=== PATIENT | male | born 1965 | race American Indian/Alaskan Native ===

== ENCOUNTER 2020-08-28 15:27 | Emergency (ER) | payer SELFPAY ==
[2020-08-28 15:34] VITALS: BP 102/67
[2020-08-28] MEDS ORDERED: ASPIRIN 325 MG TAB PO ONE (15:34)
--- NOTE | 2020-08-28 15:45 | Emergency Department Report ---
Blank Doc - Documentation Documentation: 55-year-old male that presents with chest pain, shortness of breath and stating hypotension. 1- This initial assessment/diagnostic orders/clinical plan/ treatment(s) is/are subject to change based on pt's health status, clinical progression and re- assessment by fellow clinical providers in the ED. Further treatment and workup at subsequent clinical provers discretion. Patient/guardians urged not to elope from ED as their condition may be serious if not clinically assessed and managed. 2-cardiac work-up 3-discharge coordinator notified to have the patient brought back [facility]
[2020-08-28 16:22] LABS: Alanine Aminotransferase 14 units/L (7-56); BUN/Creatinine Ratio 12; Blood Urea Nitrogen 18 mg/dL (9-20); Calcium 9.2 mg/dL (8.4-10.2); Hemolysis Index 13
[2020-08-28 16:30] LABS: Basophils # (Auto) 0.1 K/mm3 (0.0-0.1); Basophils % (Auto) 0.9 % (0.0-1.8); Eosinophils # (Auto) 0.3 K/mm3 (0.0-0.4); Eosinophils % (Auto) 3.1 % (0.0-4.3); Hematocrit 39.4 % (35.5-45.6); Hemoglobin 13.6 gm/dl (11.8-15.2); Mean Corpuscular HGB Conc 35 % (32-34); Mean Corpuscular Volume 96 fl (84-94); Monocytes # (Auto) 0.8 K/mm3 (0.0-0.8); Monocytes % (Auto) 9.5 % (0.0-7.3); Platelet Count 448 K/mm3 (140-440); Red Blood Count 4.11 M/mm3 (3.65-5.03); Red Cell Distribution Width 13.7 % (13.2-15.2)
--- NOTE | 2020-08-28 16:31 | XRay Report ---
CHEST 2 VIEWS INDICATION / CLINICAL INFORMATION: chest pain. COMPARISON: None available. FINDINGS: SUPPORT DEVICES: None. HEART / MEDIASTINUM: No significant abnormality. LUNGS / PLEURA: No significant pulmonary or pleural abnormality. No pneumothorax. ADDITIONAL FINDINGS: No significant additional findings. IMPRESSION: 1. No acute findings. Signer Name: Kenna Delong MD Signed: 08/28/2020 4:26 PM Workstation Name: [id number]
[2020-08-28 16:42] LABS: INR 0.9 (0.87-1.13)
[2020-08-28 16:43] LABS: Partial Thromboplastin Time 25.4 Sec. (24.2-36.6)
--- NOTE | 2020-09-01 13:04 | Electrocardiograph Report ---
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
== END 2020-08-28 17:50 | disposition left against medical advice (07) ==
LOC: ED 15:27
DX: R07.9 Chest pain, unspecified (principal); Z53.21 Procedure and treatment not carried out due to patient leaving prior to being seen by health care provider
CPT/HCPCS: 36415; 71046; 80053; 83735; 84484; 85025; 85610; 85730; 93005

== ENCOUNTER 2021-02-22 15:37 | Emergency (ER) | payer SELFPAY ==
[2021-02-22] MEDS ORDERED: MORPHINE 4 MG/1 ML INJ IV ONE (16:20)
[2021-02-22] MEDS ORDERED: ONDANSETRON 4 MG/2 ML INJ IV ONE (16:20)
--- NOTE | 2021-02-22 16:43 | Emergency Department Report ---
ED General Adult HPI - General Chief complaint: Head Injury Stated complaint: HEAD LAC Time Seen by Provider: 02/22/21 16:15 Source: patient Mode of arrival: Ambulatory Limitations: No Limitations - History of Present Illness Initial comments: Patient is 55 years old male with history of hypertension. 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 He is complaining of left head and neck pain and also laceration to the scalp. Patient denied any loss of consciousness. He also denied any nausea or vomiting. Patient denied any weakness numbness or tingling sensation. No other injuries. - Related Data Previous Rx's Medication Instructions Recorded Last Taken Type Ondansetron [Zofran Odt] 4 mg PO Q8HR PRN #14 tab.rapdis 02/22/21 Unknown Rx traMADoL [Ultram] 50 mg PO Q6HR PRN #14 tablet 02/22/21 Unknown Rx Allergies Allergy/AdvReac Type Severity Reaction Status Date / Time No Known Allergies Allergy Verified 02/22/21 15:39 ED Review of Systems ROS: Stated complaint: HEAD LAC Other details as noted in HPI Comment: All other systems reviewed and negative Constitutional: denies: chills, fever Respiratory: denies: cough, shortness of breath, SOB with exertion, SOB at rest Cardiovascular: denies: chest pain, palpitations, dyspnea on exertion Gastrointestinal: denies: abdominal pain, nausea, vomiting Musculoskeletal: denies: back pain Neurological: denies: headache, weakness, numbness, paresthesias, confusion, abnormal gait ED Past Medical Hx - Social History Smoking Status: Current Every Day Smoker Substance Use Type: None - Medications Home Medications: Home Medications Medication Instructions Recorded Confirmed Last Taken Type Ondansetron [Zofran Odt] 4 mg PO Q8HR PRN #14 tab.rapdis 02/22/21 Unknown Rx traMADoL [Ultram] 50 mg PO Q6HR PRN #14 tablet 02/22/21 Unknown Rx ED Physical Exam - General Limitations: No Limitations General appearance: alert, in no apparent distress - Head Head exam: Present: other (3 cm laceration to the left scalp.) - Eye Eye exam: Present: normal appearance, PERRL - ENT ENT exam: Present: normal exam, normal orophraynx, mucous membranes moist - Neck Neck exam: Present: normal inspection, full ROM. Absent: tenderness, meningismus - Respiratory Respiratory exam: Present: normal lung sounds bilaterally - Cardiovascular Cardiovascular Exam: Present: regular rate, normal rhythm, normal heart sounds - GI/Abdominal GI/Abdominal exam: Present: soft, normal bowel sounds. Absent: distended, tenderness, guarding, rebound, rigid, organomegaly, mass, bruit, pulsatile mass, hernia - Extremities Exam Extremities exam: Present: normal inspection, full ROM, normal capillary refill. Absent: tenderness - Back Exam Back exam: Present: normal inspection, full ROM. Absent: CVA tenderness (R), CVA tenderness (L) - Neurological Exam Neurological exam: Present: alert, oriented X3, CN II-XII intact, normal gait, reflexes normal. Absent: motor sensory deficit - Psychiatric Psychiatric exam: Present: normal mood - Skin Skin exam: Present: warm, other (Laceration) - Laceration /Wound Repair Head Wound Location: head Wound's Depth, Shape: linear Wound Explored: clean Betadine Prep?: Yes Wound Repaired With: Dermabond ED Medical Decision Making - Radiology Data Radiology results: report reviewed - Medical Decision Making Patient is 55 years old male with history of hypertension. 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 He is complaining of left head and neck pain and also laceration to the scalp. Patient denied any loss of consciousness. He also denied any nausea or vomiting. Patient denied any weakness numbness or tingling sensation. No other injuries. Patient remained stable in the ER with stable vital sign. CT brain, CT cervical spine is unremarkable. Patient received morphine and Zofran. Patient stated that his feeling much better. Patient stated that he received a tetanus shot last year. Patient advised to follow-up with his primary doctor in the next 2 to 3 days and to return to the ER if he develop any new symptoms. Critical care attestation.: If time is entered above; I have spent that time in minutes in the direct care of this critically ill patient, excluding procedure time. ED Disposition Clinical Impression: Head injury, Laceration of scalp Disposition: 01 HOME / SELF CARE / HOMELESS Is pt being admited?: No Condition: Stable Instructions: Head Injury, Adult, Wound Care, Adult, Sutures, Adriel, or Adhesive Wound Closure, [id number] Prescriptions: traMADoL [Ultram] 50 mg PO Q6HR PRN #14 tablet PRN Reason: Pain Ondansetron [Zofran Odt] 4 mg PO Q8HR PRN #14 tab.rapdis PRN Reason: Nausea And Vomiting Referrals: PRIMARY CARE,MD [Primary Care Provider] - 3-5 Days
--- NOTE | 2021-02-22 16:50 | Cat Scan Report ---
CT HEAD WITHOUT CONTRAST INDICATION / CLINICAL INFORMATION: head injury. TECHNIQUE: All CT scans at this location are performed using CT dose reduction for ALARA by means of automated e xposure control. COMPARISON: None available. FINDINGS: HEMORRHAGE: No evidence of intracranial hemorrhage or extra-axial fluid collection. EXTRA-AXIAL SPACES: Cortical sulci, sylvian fissures and basilar cisterns have an unremarkable appear ance. VENTRICULAR SYSTEM: The third and lateral ventricles are of normal size and configuration. CEREBRAL PARENCHYMA: No areas of abnormal brain parenchymal attenuation are identified. There is no i ndication of recent infarction. MIDLINE SHIFT OR HERNIATION: There is no mass effect. CEREBELLUM / BRAINSTEM: Brainstem and cerebellum have an unremarkable appearance. MIDLINE STRUCTURES:No abnormalities of the pituitary gland or pineal region are identified. INTRACRANIAL VESSELS:No abnormalities are identified on this noncontrast head CT. ORBITS: visualized portions of the orbits have an unremarkable appearance. SOFT TISSUES of HEAD: No significant abnormality. CALVARIUM: Evaluation of bone windows reveals no abnormalities. PARANASAL SINUSES / MASTOID AIR CELLS: Visualized portions of the paranasal sinuses are free from inf lammatory mucosal disease. Mastoid air cells are normally pneumatized. IMPRESSION: 1. Normal head CT without contrast. Signer Name: Camilo Chicas MD Signed: 02/22/2021 4:46 PM Workstation Name: [id number]
--- NOTE | 2021-02-22 17:09 | Cat Scan Report ---
Exam: CT cervical spine History: NECK INJURY; Technique: Contiguous thin cut axial images obtained through the cervical spine. Sagittal and milligan l reconstructions performed by the technologist. All CT scans at this location are performed using CT dose reduction for ALARA by means of automated exposure control. Findings: No priors. There is no evidence of fracture or traumatic subluxation. Vertebral bodies are normal in height and alignment. Intervertebral disc spaces: At C6-C7: Disc height loss; bony spur; bilateral foraminal stenoses worse on the right side Uncovertebral joint hypertrophy bilaterally at C6-C7 disc level Facet joint hypertrophic changes on the right side at C7-T1 level; neuroforamina are normal Surrounding soft tissues are grossly normal. Impression: No signs of acute bony trauma to the cervical spine. Signer Name: Allan Sandoval MD Signed: 02/22/2021 5:04 PM Workstation Name: [id number]
[2021-02-22] MEDS ORDERED: MORPHINE 2 MG/1 ML INJ IV ONE (18:00)
[2021-02-22 18:37] VITALS: BP 156/97
== END 2021-02-22 19:00 | disposition home or self-care (01) ==
LOC: ED 15:37
DX: S01.01XA Laceration without foreign body of scalp, initial encounter (principal); F17.290 Nicotine dependence, other tobacco product, uncomplicated; W22.8XXA Striking against or struck by other objects, initial encounter; Y93.89 Activity, other specified; Y92.89 Other specified places as the place of occurrence of the external cause; Y99.8 Other external cause status
CPT/HCPCS: 12002; 70450; 72125; 96374; 96375; 99283; J2270; J2405